=== PATIENT | female | born 1990 | race African-American/Black ===

== ENCOUNTER 2017-05-24 20:13 | Emergency (ER) | payer MEDICAID ==
[2015-08-21 10:40] VITALS: BMI 36.1
[~2017-05-24 20:13] MED LIST: EZFE 200200 MG PO; IBUPROFEN800 MG PO; PERCOCET 10/3251 TA1 PO; PRENATAL-U CA1 UDCAP PO
[2017-05-24 21:23] LABS: BASOPHILS 0.2 % (0-2); EOSINOPHILS 0.6 % (0-7); HEMATOCRIT 29.1 % (36.0-48.0); HEMOGLOBIN 8.9 g/dL (12-16); IMMATURE GRANULOCYTES 0.2 % (0-5); LYMPHOCYTES 33.8 % (15-50); MCH 23.9 pg (26.0-34.0); MCHC 30.6 g/dL (31.0-37.0); MCV 78.2 fL (80.0-100.0); MEAN PLATELET VOLUME 9.5 fL (7.4-10.4); MONOCYTES 7.7 % (2-11); NEUTROPHILS 57.5 % (40-80); PLATELET COUNT 285 10x3/uL (130-400); RBC 3.72 10x6/uL (4.00-5.40); RDW 15.2 % (11.5-14.5); WBC 6.2 10x3/uL (4.8-10.8)
[2017-05-24 21:42] LABS: ALBUMIN 3.4 g/dL (3.4-5.0); ALKALINE PHOSPHATASE 64 U/L (46-116); ALT (SGPT) 19 U/L (10-68); BILIRUBIN - TOTAL 0.22 mg/dL (0.2-1.3); CALC OSMOLALITY 276 mosm/kg (275-300); CALCIUM 8.3 mg/dL (8.5-10.1); CHLORIDE - SERUM 104 mmol/L (98-107); CREATININE - SERUM 0.9 mg/dL (0.6-1.3); GLUCOSE 89 mg/dL (74-106); POTASSIUM - SERUM 3.2 mmol/L (3.5-5.1); PROTEIN - SERUM 7.3 g/dL (6.4-8.2); SODIUM 140 mmol/L (136-145); UREA NITROGEN 9 mg/dL (7-18); eGFR NON AFRICAN AMERICAN 80 mL/min (90-120)
[2017-05-24 21:53] LABS: CHOL - HDL RATIO 4.2 ratio (2.3-4.1); CHOLESTEROL, TOTAL 110 mg/dL (0-200); CKMB 0.6 U/L (0.0-3.6); CREATINE KINASE 207 UL (21-215); HDL CHOLESTEROL 26 mg/dL (32-96); LDL CHOLESTEROL 68 mg/dL (0-100); LDL-HDL RATIO 2.6 ratio (1.5-3.5); TRIGLYCERIDE 81 mg/dL (30-200)
[2017-05-24 21:58] LABS: TROPONIN-I < 0.017 ng/mL (0.000-0.060)
== END 2017-05-25 00:25 | disposition home or self-care (01) ==
LOC: D.ER 20:13
PROVIDERS: Family Medicine
DX: R07.89 Other chest pain (principal); D50.9 Iron deficiency anemia, unspecified; I44.0 Atrioventricular block, first degree

== ENCOUNTER 2017-10-18 09:27 | Emergency (ER) | payer MEDICAID ==
[~2017-10-18] VITALS: Ht 170.2 cm; Wt 121.8 kg
[2017-10-18 09:36] VITALS: Ht 170.2 cm; Wt 121.8 kg
[2017-10-18 10:09] LABS: BASOPHILS 0.4 % (0-2); EOSINOPHILS 0.8 % (0-7); HEMATOCRIT 31.6 % (36.0-48.0); IMMATURE GRANULOCYTES 0.2 % (0-5); LYMPHOCYTES 36.5 % (15-50); MCH 24.9 pg (26.0-34.0); MCHC 31.6 g/dL (31.0-37.0); MCV 78.6 fL (80.0-100.0); NEUTROPHILS 53.1 % (40-80); PLATELET COUNT 290 10x3/uL (130-400); RBC 4.02 10x6/uL (4.00-5.40); RDW 16.1 % (11.5-14.5)
[2017-10-18 10:12] LABS: HCG URINE NEGATIVE (NEGATIVE)
[2017-10-18 10:13] LABS: APPEARANCE HAZY (CLEAR); BILIRUBIN NEGATIVE (NEGATIVE); COLOR YELLOW (YELLOW); GLUCOSE NEGATIVE (NEGATIVE); KETONE NEGATIVE (NEGATIVE); NITRITE NEGATIVE (NEGATIVE); PROTEIN NEGATIVE (NEGATIVE); UROBILINOGEN NORMAL (NORMAL)
[2017-10-18 10:18] LABS: BACTERIA MANY /hpf (NONE SEEN); MUCUS <1+ /lpf (NONE SEEN); RED CELLS - URINE 0-5 /hpf (0-5)
[2017-10-18 10:19] LABS: AMORPHOUS SEDIMENT <1+ /lpf (NONE SEEN)
[2017-10-18] MEDS ORDERED: FERROUS SULFAT325 MG PO (11:11)
[2017-10-18] MEDS ORDERED: TYLENOL W/CODEI1 TAB PO (11:11)
[2017-10-18] MEDS ORDERED: MACROBID100 MG PO (11:11)
[2017-10-18 11:25] VITALS: BP 114/72
[2017-10-18 11:26] LABS: ALBUMIN 3.5 g/dL (3.4-5.0); ALKALINE PHOSPHATASE 75 U/L (46-116); ALT (SGPT) 17 U/L (10-68); AMYLASE - SERUM 31 U/L (25-115); CALC OSMOLALITY 279 mosm/kg (275-300); CALCIUM 8.7 mg/dL (8.5-10.1); CARBON DIOXIDE 26.9 mmol/L (21.0-32.0); CHLORIDE - SERUM 105 mmol/L (98-107); CREATININE - SERUM 0.9 mg/dL (0.6-1.3); GLUCOSE 94 mg/dL (74-106); LIPASE 95 U/L (73-393); POTASSIUM - SERUM 3.7 mmol/L (3.5-5.1); PROTEIN - SERUM 7.8 g/dL (6.4-8.2); SODIUM 141 mmol/L (136-145); UREA NITROGEN 9 mg/dL (7-18); eGFR NON AFRICAN AMERICAN 80 mL/min (90-120)
== END 2017-10-18 11:29 | disposition home or self-care (01) ==
LOC: D.ER 09:27
PROVIDERS: Emergency Medicine
DX: R10.2 Pelvic and perineal pain (principal); D64.9 Anemia, unspecified; N39.0 Urinary tract infection, site not specified

== ENCOUNTER 2019-11-07 22:16 | Emergency (ER) | payer SELFPAY ==
[~2019-11-07] VITALS: Ht 170.2 cm; Wt 90.7 kg
[~2019-11-07 22:16] MED LIST changes: +FERROUS SULFAT325 MG PO; +MACROBID100 MG PO; +TYLENOL W/CODEI1 TAB PO
[2019-11-07 22:20] VITALS: BP 107/67; Ht 170.2 cm; Wt 90.7 kg
[2019-11-07] MEDS ORDERED: AMOXICILLIN500 M1 PO (22:45)
[2019-11-08] MEDS ORDERED: MEDROL DOSE PACK4 MG PO (10:40)
[2019-11-08] MEDS ORDERED: AMOXICILLIN875 MG PO (10:40)
[2019-11-08] MEDS ORDERED: FERROUS GLUCON324 MG PO (11:12)
== END 2019-11-07 22:58 | disposition home or self-care (01) ==
LOC: D.ER 22:16
DX: J02.0 Streptococcal pharyngitis (principal)

== ENCOUNTER 2019-11-08 10:02 | Inpatient (IN) | payer SELFPAY ==
[~2019-11-08] VITALS: Ht 170.2 cm; Wt 118.2 kg
[~2019-11-08 10:02] MED LIST changes: +AMOXICILLIN500 M1 PO
[2019-11-08 10:23] LABS: BASOPHILS 0.1 % (0-2); EOSINOPHILS 0.9 % (0-7); HEMATOCRIT 30.8 % (36.0-48.0); HEMOGLOBIN 9.5 g/dL (12-16); IMMATURE GRANULOCYTES 0.1 % (0-5); LYMPHOCYTES 19.8 % (15-50); MCH 24.2 pg (26.0-34.0); MCHC 30.8 g/dL (31.0-37.0); MCV 78.4 fL (80.0-100.0); MEAN PLATELET VOLUME 9.3 fL (7.4-10.4); NEUTROPHILS 69.1 % (40-80); PLATELET COUNT 309 10x3/uL (130-400); RBC 3.93 10x6/uL (4.00-5.40); RDW 15.9 % (11.5-14.5); WBC 8.2 10x3/uL (4.8-10.8)
[2019-11-08 10:32] LABS: ANION GAP 8.3 mmol/L (8-16); CALCIUM 8.3 mg/dL (8.5-10.1); CARBON DIOXIDE 31.2 mmol/L (21.0-32.0); POTASSIUM - SERUM 3.5 mmol/L (3.5-5.1)
[2019-11-08] MEDS ORDERED: MEDROL DOSE PACK4 MG PO (10:40)
[2019-11-08] MEDS ORDERED: AMOXICILLIN875 MG PO (10:40)
[2019-11-08] MEDS ORDERED: FERROUS GLUCON324 MG PO (11:12)
[2019-11-08 11:29] LABS: % SATURATION 6 % (15-55); IRON 20 ug/dl (35-150); TOTAL IRON BIND CAPACITY 298 ug/dl (260-445); UNSAT IRON BIND CAPACITY 278 ug/dl (150-375)
[2019-11-08 12:00] VITALS: BP 124/70
[2019-11-08 13:58] VITALS: BP 109/61; Ht 170.2 cm; Wt 118.2 kg
--- NOTE | 2019-11-08 14:08 | NUR ---
RECEIVED PT FROM ER. PT IS AAO AND UP AD VINH. CALL LIGHT W/I REACH. QUICKSTART, HISTORY, MED REQ, AND ASSESSMENT COMPLETE. NO S/S OF DISTRESS NOTED. PIV SALINE LOCKED. VSS AND WNL. WILL CTM.
--- NOTE | 2019-11-08 19:10 | NUR ---
REPORT RECEIVED, PT CARE ASSUMED. INTRODUCED SELF AND WROTE NAME ON BOARD. PT LYING IN BED, WATCHING TV, AAOX4. REQUESTING BROTH, PROVIDED. DENIES ANY OTHER NEEDS AT THIS TIME. BED IN LOWEST, SRX2, CALL LIGHT WITHIN REACH. WILL CTM.
[2019-11-08 20:30] VITALS: BP 115/68
[2019-11-09 04:30] VITALS: BP 111/65
[2019-11-09 04:53] LABS: BACTERIA NONE SEEN /hpf (NEGATIVE); BILIRUBIN NEGATIVE (NEGATIVE); EPITHELIAL CELLS RARE /hpf (0-5); GLUCOSE NEGATIVE (NEGATIVE); KETONE MODERATE mg/dL (NEGATIVE); NITRITE NEGATIVE (NEGATIVE); RED CELLS - URINE 0-5 /hpf (0-5); UROBILINOGEN NORMAL (NORMAL)
[2019-11-09 06:36] LABS: BASOPHILS 0 % (0-2); EOSINOPHILS 0 % (0-7); HEMATOCRIT 31.5 % (36.0-48.0); HEMOGLOBIN 9.6 g/dL (12-16); IMMATURE GRANULOCYTES 0.4 % (0-5); LYMPHOCYTES 11.7 % (15-50); MCH 23.9 pg (26.0-34.0); MCHC 30.5 g/dL (31.0-37.0); MCV 78.6 fL (80.0-100.0); MEAN PLATELET VOLUME 9.8 fL (7.4-10.4); MONOCYTES 2.8 % (2-11); NEUTROPHILS 85.1 % (40-80); RBC 4.01 10x6/uL (4.00-5.40); RDW 16.1 % (11.5-14.5); WBC 9.8 10x3/uL (4.8-10.8)
[2019-11-09 06:51] LABS: PLATELET COUNT 389 10x3/uL (130-400)
[2019-11-09 06:55] LABS: ALBUMIN 3.2 g/dL (3.4-5.0); ALKALINE PHOSPHATASE 67 U/L (30-120); ALT (SGPT) 14 U/L (10-68); BILIRUBIN - TOTAL 0.23 mg/dL (0.2-1.3); CALC OSMOLALITY 275 mosm/kg (275-300); CALCIUM 8.2 mg/dL (8.5-10.1); CARBON DIOXIDE 26.3 mmol/L (21.0-32.0); CHLORIDE - SERUM 104 mmol/L (98-107); CREATININE - SERUM 0.9 mg/dL (0.6-1.3); GLUCOSE 112 mg/dL (74-106); PROTEIN - SERUM 7.3 g/dL (6.4-8.2); SODIUM 138 mmol/L (136-145); UREA NITROGEN 10 mg/dL (7-18); eGFR NON AFRICAN AMERICAN 78 mL/min (90-120)
[2019-11-09 06:56] LABS: POTASSIUM - SERUM 4.1 mmol/L (3.5-5.1)
--- NOTE | 2019-11-09 07:00 | NUR ---
RECEIVED REPORT. ASSUMED CARE OF PATIENT. PATIENT SITTING UP IN BED. AT BEDSIDE FOR AM ROUNDS. RESP EVEN AND UNLABORED. CALL LIGHT WITHIN REACH. PATIENT DENIES NEEDS. WHITE BOARD UPDATED. BEDSIDE SHIFT REPORT COMPLETE. NO DISTRESS. PATIENT POSSIBLY HOME TODAY.
--- NOTE | 2019-11-09 08:53 | NUR ---
STOOL SPECIMEN SUBMITTED TO LAB.
[2019-11-09 08:57] VITALS: BP 101/54
[2019-11-09 12:15] VITALS: BP 103/63
--- NOTE | 2019-11-09 13:00 | NUR ---
PATIENT SITTING IN BED, TOLERATED NOON MEAL TRAY WELL. CALL LIGHT WITHIN REACH. NO DISTRESS.
--- NOTE | 2019-11-09 17:00 | NUR ---
RESTING IN BED. NO DISTRESS. DR. HOWELL DISCHARGING PATIENT. RECEIVING IRON INFUSION AT THIS TIME.
[2019-11-09 17:42] VITALS: BP 101/55
--- NOTE | 2019-11-09 18:00 | NUR ---
20 GAUGE IV REMOVED FROM LEFT FOREARM. CATHETER TIP INTACT. NO BLEEDING FROM SITE. 2X2 GAUZE APPLIED AND SECURED WITH BANDAID. TOLERATED IV REMOVAL WELL PATIENT IS DISCHARGING TO HOME.
--- NOTE | 2019-11-09 18:15 | NUR ---
PATIENT VERBALIZED UNDERSTANDING OF ALL DISCHARGE INSTRUCTIONS PROVIDED. PATIENT HAS SCRIPTS NEEDED FOR ABX AND STERIODS AT DISCHARGE.
--- NOTE | 2019-11-09 18:30 | NUR ---
PATIENT LEFT UNIT AMBULATORY. PATIENT DISCHARGED TO HOME WITH FAMILY. PATIENT LEFT UNIT IN NO DISTRESS WITH ALL PERSONAL BELONGINGS.
== END 2019-11-09 18:30 | disposition home or self-care (01) | DRG 153 ==
LOC: D.ER 10:02 → D.M2 11:52
PROVIDERS: Emergency Medicine; ADMIT Family Medicine; ATTEND Family Medicine
DX: J02.0 Streptococcal pharyngitis (principal); Z68.41 Body mass index [BMI] 40.0-44.9, adult; D50.9 Iron deficiency anemia, unspecified; E66.9 Obesity, unspecified

== ENCOUNTER 2019-11-28 09:48 | Emergency (ER) | payer SELFPAY ==
[~2019-11-28] VITALS: Ht 170.2 cm; Wt 118.2 kg
[~2019-11-28 09:48] MED LIST changes: +AMOXICILLIN875 MG PO; +FERROUS GLUCON324 MG PO; +MEDROL DOSE PACK4 MG PO
[2019-11-28 09:59] VITALS: Ht 170.2 cm; Wt 118.2 kg
[2019-11-28] MEDS ORDERED: OMNICEF300 MG PO (11:05)
[2019-11-28 11:27] VITALS: BP 114/73
== END 2019-11-28 11:28 | disposition home or self-care (01) ==
LOC: D.ER 09:48
DX: J02.0 Streptococcal pharyngitis (principal); R05 Cough